=== PATIENT | female | born 2000 ===

== ENCOUNTER 2021-03-11 12:02 | Emergency (ER) | payer OTHER ==
[~2021-03-11] VITALS: Ht 167.6 cm; Wt 91.0 kg
[2021-03-11 12:06] VITALS: BP 153/89
[2021-03-11] MEDS ORDERED: IBUPROFEN 800MG TABLET PO ONE (12:30)
[2021-03-11] MEDS ORDERED: SODIUM CHLORIDE 0.9% 1,000 ML IV ONE (14:00)
[2021-03-11] MEDS ORDERED: HYDROCODONE/ACETAMINOPHEN 5/325MG TABLET PO ONE (15:00)
[2021-03-11] MEDS ORDERED: IBUP-2029 MT (16:17)
[2021-03-11] MEDS ORDERED: HYDR-4001 MT (16:17)
== END 2021-03-11 18:10 | disposition home or self-care (01) ==
LOC: ER 12:02
DX: S82.002A Unspecified fracture of left patella, initial encounter for closed fracture (principal); V49.9XXA Car occupant (driver) (passenger) injured in unspecified traffic accident, initial encounter; Y93.89 Activity, other specified; Y92.89 Other specified places as the place of occurrence of the external cause; Y99.8 Other external cause status
CPT/HCPCS: 73562; 73610; 73630; 73700; 81025; 99284; J7030; L1830; 29505